=== PATIENT | male | born 1970 | race Caucasian/White ===

== ENCOUNTER 2018-09-26 14:10 | Emergency (ER) | payer BC, OTHER ==
[~2018-09-26] VITALS: Ht 180.3 cm; Wt 68.2 kg
[~2018-09-26 14:10] MED LIST: NO HISTORICAL MEDS; keflex PO; oxycodone PO
--- NOTE | 2018-09-26 14:57 | REP ---
Clinical: Left shoulder pain/injury . Technique: Internal rotation, external rotation, and Y view. Findings: No acute fracture or dislocation. Minimal inferior cortical irregularity/spurring at the acromioclavicular joint noted. Glenohumeral joint is intact and normal. There is no evidence for acute fracture or dislocation. Surrounding soft tissues are normal. Subacromial space is normal. Impression: Minimal degenerative change at the acromioclavicular joint. No acute fracture or dislocation. Electronically Signed by Taiwo Bravo MD 09/26/2018 02:49 P
[2018-09-26] MEDS ORDERED: ROBA500T PO (18:33)
[2018-09-26] MEDS ORDERED: IBUP-1022 PO (18:33)
[2018-09-26] MEDS ORDERED: LIDO4CRE4 TOP (18:33)
[2018-09-26 18:49] VITALS: BP 160/86
--- NOTE | 2018-09-28 08:32 | ECGEPIP ---
Stationary ECG Study [facility] - ED Test Date: 2018-09-26 Pat Name: JUSTO ALEXANDRA Department: Room: - Gender: M Assistant: radha : 1970 Requested By: RONY Brown PA-C Order Number: [id number] Reading MD: Renetta Vega Measurements Intervals [place] Rate: 67 P: 73 GA: 124 QRS: 73 QRSD: 109 T: 45 QT: 362 QTc: 382 Interpretive Statements SINUS RHYTHM WITH SINUS ARRHYTHMIA POSSIBLE LEFT ATRIAL ENLARGEMENT POSSIBLE RIGHT VENTRICULAR CONDUCTION DELAY SHORT GA INTERVAL DEL;AYED R WAVE PROGRESSION NONSPECIFIC ST T WAVE CHANGES NO OLD ECG FOR COMPARISON Electronically Signed On 09-28-2018 8:31:43 EST by Renetta Vega
== END 2018-09-26 18:50 | disposition home or self-care (01) ==
LOC: M ED 14:10
DX: M62.830 Muscle spasm of back (principal); M19.012 Primary osteoarthritis, left shoulder; F17.200 Nicotine dependence, unspecified, uncomplicated

== ENCOUNTER 2021-08-15 08:35 | Emergency (ER) | payer OTHER ==
[~2021-08-15] VITALS: Ht 180.3 cm; Wt 73.6 kg
[2021-08-15 08:35] VITALS: BP 140/77
[~2021-08-15 08:35] MED LIST changes: +IBUP-1022 PO; +LIDO4CRE4 TOP; +ROBA500T PO
[2021-08-15] MEDS ORDERED: MUCI600T31 PO (10:03)
[2021-08-15] MEDS ORDERED: BENZ200C70 PO (10:03)
== END 2021-08-15 10:10 | disposition home or self-care (01) ==
LOC: M ED 08:35
DX: J06.9 Acute upper respiratory infection, unspecified (principal); Z20.822 Contact with and (suspected) exposure to COVID-19; F17.210 Nicotine dependence, cigarettes, uncomplicated
CPT/HCPCS: 71045; 99284; U0003

== ENCOUNTER → 2021-11-16 | Outpatient (CLI) | payer OTHER ==
[~2021-11-16] MED LIST changes: +BENZ200C70 PO; +MUCI600T31 PO
== END ==
LOC: M SOG 08:22
PROVIDERS: ATTEND Orthopaedic Surgery
DX: M25.521 Pain in right elbow (principal); Z87.81 Personal history of (healed) traumatic fracture

== ENCOUNTER → 2023-12-27 | Outpatient (CLI) | payer OTHER | LOC: M WUC 13:00 | PROVIDERS: ATTEND Nurse Practitioner Adult Health | DX: J44.9 Chronic obstructive pulmonary disease, unspecified (principal) ==

== ENCOUNTER 2024-08-26 08:15 | Emergency (ER) | payer OTHER ==
[~2024-08-26] VITALS: Ht 180.3 cm; Wt 70.6 kg
[~2024-08-26 08:15] MED LIST changes: -LIDO4CRE4 TOP; +LIDO5CRE7 TOP
[2024-08-26] MEDS: IBUPROFEN 600MG TAB PO ONE (09:26)
[2024-08-26] MEDS: BENZONATATE 100MG CAPSULE PO ONE (10:52)
[2024-08-26 11:00] VITALS: BP 134/78; TEMP 98.4; O2SAT 96
== END 2024-08-26 11:02 | disposition home or self-care (01) ==
LOC: M ED 08:15
DX: J09.X2 Influenza due to identified novel influenza A virus with other respiratory manifestations (principal); F17.210 Nicotine dependence, cigarettes, uncomplicated; Z79.899 Other long term (current) drug therapy